=== PATIENT | female | born 1985 | race Caucasian/White ===

== ENCOUNTER 2016-09-05 22:52 | Emergency (ER) | payer MEDICAID ==
[2016-09-05 22:59] VITALS: BP 142/74
[2016-09-05] MEDS ORDERED: HYDROcodone/ACETAMINOPHEN 1 EACH TABLET PO ONE (23:09)
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
[2016-09-05] MEDS ORDERED: HYDROcodone/ACETAMINOPHEN 1 EACH TABLET ONE (23:16)
== END 2016-09-06 00:13 | disposition home or self-care (01) ==
LOC: ER 22:52
DX: R68.84 Jaw pain (principal); Z72.0 Tobacco use